=== PATIENT | male | born 1990 | race Hispanic/Latino ===

== ENCOUNTER 2017-10-10 21:01 | Emergency (ER) | payer OTHER ==
[~2017-10-10] VITALS: Ht 180.3 cm; Wt 99.8 kg
--- NOTE | 2017-10-10 21:20 | NUR ---
ARRIVAL PT ARRIVED AMBULATORY TO ER 1 WITH C/O OF ABSCESS ON RIGHT ARM. STATES WAS "SHOOTING UP ABOUT A MONTH AND HALF AGO AND MIGHT HAVE MISSED." RIGHT FOREARM IS ERYTHMATIS AND SWOLLEN. PT IN NO ACUTE DISTRESS AT THIS TIME. EDP NOTIFIED OF ARRIVAL.
--- NOTE | 2017-10-10 21:29 | ER.PDOC ---
General Chief Complaint: Skin Rash/Abscess Stated Complaint: ABSCESS TRAVEL OUT OF US: Yes Time seen by MD: 21:28 Source: patient, other (States just moved here from [place], has no PMD. Pain not worse tonight, wants it checked out. No erythema noted, no red streaks up arm. ) Exam Limitations: no limitations History of Present Illness Timing/Duration: other (stated had been shooting up (told this to RN) 1 month ago, and developed painful area on arm. States that it has been there at least a month to a month and a half. No medical attention sought) Allergies: Coded Allergies: No Known Allergies (Unverified , 10/10/17) Past Medical History Medical History: asthma Social History Smoking: quit less than 1 year Alcohol Use: rarely Drug Use: heroin Review of Systems All Other Systems: Reviewed and Negative Physical Exam General Appearance: No Apparent Distress, WD/WN Extremities: Normal Range of Motion, Other (R lateral flexor surface of forearm shows 1/2 cm deep lipoma-like mass, far too deep to I and D, no pointing , no erythema, no red streaks, no TTP to arm. 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 Hot soaks to area 15 minutes 10 x a day. Departure Time of Disposition: 21:40 Disposition: 01 HOME, SELF-CARE Impression: Primary Impression: Cellulitis Condition: Stable Referrals: PCP,UNKNOWN (PCP) PRIMARY CARE PROVIDER Duration or Time Spent with Pa: ELMER SANTANA MD Oct 10, 2017 21:29
[2017-10-10] MEDS ORDERED: ROCEPHIN IM IM STA (21:32)
[2017-10-10] MEDS ORDERED: ROCEPHIN ONE (21:35)
[2017-10-10] MEDS ORDERED: LIDOCAINE 1% VIAL ONE (21:35)
[2017-10-10 22:03] VITALS: BP 157/80
== END 2017-10-10 21:55 | disposition home or self-care (01) ==
LOC: ER 21:01
DX: L03.113 Cellulitis of right upper limb (principal); J45.909 Unspecified asthma, uncomplicated; F11.10 Opioid abuse, uncomplicated; Z87.891 Personal history of nicotine dependence
CPT/HCPCS: 96372; 99283; J0696; J2001

== ENCOUNTER 2017-10-19 09:31 | Emergency (ER) | payer OTHER ==
[~2017-10-19] VITALS: Ht 180.3 cm; Wt 97.5 kg
[2017-10-19] MEDS ORDERED: SOLU-MEDROL IM STA (09:55)
[2017-10-19] MEDS ORDERED: EPINEPHRINE SQ STA (09:55)
[2017-10-19] MEDS ORDERED: PEPCID PO STA (09:55)
[2017-10-19] MEDS ORDERED: BENADRYL IM STA (09:55)
[2017-10-19] MEDS ORDERED: BENADRYL ONE (10:06)
[2017-10-19] MEDS ORDERED: PEPCID ONE (10:06)
[2017-10-19] MEDS ORDERED: EPINEPHRINE ONE (10:06)
[2017-10-19] MEDS ORDERED: SOLU-MEDROL ONE (10:07)
--- NOTE | 2017-10-19 10:07 | ER.PDOC ---
General Chief Complaint: Allergic Reaction Stated Complaint: RASH,HIVES ON FACE AND TORSO Time seen by MD: 10:01 Source: patient Exam Limitations: no limitations History of Present Illness Initial Comments Skin rash for 2 days. Patient completing a course of Bactrim and Clindamycin for abscess. Severity: moderate Location: facial, neck, trunk Quality: itchy Exposure: antibiotic Allergies: Coded Allergies: No Known Allergies (Unverified , 10/10/17) Past Medical History Medical History: no pertinent history Social History Smoking: quit greater than 1 year Alcohol Use: sober Drug Use: other Constitutional: no symptoms reported Respiratory: no symptoms reported Cardiovascular: no symptoms reported Gastrointestinal: no symptoms reported Skin: see HPI All Other Systems: Reviewed and Negative Physical Exam General Appearance: alert, no distress Skin: warm/dry, skin rash Location: face, neck, chest, abdomen Character: urticarial Neck: trachea midline, no swelling Respiratory: no resp. distress, breath sounds nml CVS: reg. rate & rhythm, heart sounds nml Abdomen: non-tender, no organomegaly NEURO/PSYCH: oriented x 3, CN's nml as tested, motor nml, sensation nml, mood/ affect nml Progress Progress Abscess right upper extremity resolved. Patient feeling better. Departure Time of Disposition: 10:42 Disposition: 01 HOME, SELF-CARE Impression: Primary Impression: Acute allergic reaction Qualified Codes: T78.40XA - Allergy, unspecified, initial encounter Additional Impression: Urticaria Condition: Stable Referrals: PCP,UNKNOWN (PCP) PRIMARY CARE PROVIDER Additional Instructions: Stop antibiotics Prednisone Pepcid Benadryl F/U with your PCP in 2-3 days Duration or Time Spent with Pa: 40 mins BLANCA CANCINO MD Oct 19, 2017 10:07
[2017-10-19 10:55] VITALS: BP 145/66
== END 2017-10-19 10:54 | disposition home or self-care (01) ==
LOC: ER 09:31
DX: T78.40XA Allergy, unspecified, initial encounter (principal); L50.9 Urticaria, unspecified; X58.XXXA Exposure to other specified factors, initial encounter
CPT/HCPCS: 96372 ×3; 99284; J0171; J1200; J2930

== ENCOUNTER 2017-11-06 12:37 | Emergency (ER) | payer OTHER ==
[~2017-11-06] VITALS: Ht 180.3 cm; Wt 102.1 kg
--- NOTE | 2017-11-06 13:07 | NUR ---
ARRIVAL PATIENT ARRIVED TO ED5 AMBULATORY, C/O OF POSSIBLE RIGHT ARM ABSCESS, PATIENT WAS SEEN X2 FOR THE SAME SKIN ISSUE, HAS HAD CLINDAMYCIN, NOT SURE IF AREA IS BETTER, DECIDED TO COME TO ED.
--- NOTE | 2017-11-06 13:50 | ER.PDOC ---
General Chief Complaint: Skin Rash/Abscess Stated Complaint: ABSCESS ON RT ARM Time seen by MD: 13:44 Source: patient Exam Limitations: no limitations History of Present Illness Initial Comments Swelling to right forearm for 2 Months. Seen in the ED 6 weeks ago and was treated with antibiotics and told to follow up with a Surgeon which he never did. Competed antibiotics but swelling did not go down. Severity: moderate Allergies: Coded Allergies: sulfamethoxazole (Verified Allergy, Unknown, HIVES, 11/06/17) trimethoprim (Verified Allergy, Unknown, HIVES, 11/06/17) Home Meds No Active Prescriptions or Reported Meds Past Medical History Medical History: no pertinent history Surgical History: no surgical history Social History Smoking: non-smoker Alcohol Use: none Drug Use: none Constitutional: no symptoms reported Respiratory: no symptoms reported Cardiovascular: no symptoms reported Gastrointestinal: no symptoms reported Skin: see HPI All Other Systems: Reviewed and Negative Physical Exam Skin: other (swelling proximal and lateral aspect of right forearm, non tender and not erythermatous. No inflammation) 1 - Swelling, non tender Extremities: non-tender, nml ROM, no edema Neck: trachea midline, no swelling Respiratory: no resp. distress, breath sounds nml CVS: reg. rate & rhythm, heart sounds nml Abdomen: non-tender, no organomegaly NEURO/PSYCH: oriented x 3, CN's nml as tested, motor nml, sensation nml, mood/ affect nml Progress Progress Aspirated swelling and got serosanguineous fluid Departure Time of Disposition: 13:48 Disposition: 01 HOME, SELF-CARE Impression: Primary Impression: Cyst Condition: Stable Referrals: PCP,UNKNOWN (PCP) PRIMARY CARE PROVIDER Scripts No Active Prescriptions or Reported Meds Comments F/U with Dr. Salter this week, call for appointment. Duration or Time Spent with Pa: 40 mins BLANCA CANCINO MD Nov 06, 2017 13:50
[2017-11-06 13:54] VITALS: BP 134/79
== END 2017-11-06 13:55 | disposition home or self-care (01) ==
LOC: ER 12:37
DX: L72.8 Other follicular cysts of the skin and subcutaneous tissue (principal)
CPT/HCPCS: 10160; 99284